=== PATIENT | male | born 1945 | race Caucasian/White ===

== ENCOUNTER 2016-09-02 11:37 | Inpatient (IN) | payer OTHER, MEDICARE ==
[2016-08-20 14:56] LABS: BASOPHILS 1.1 %; BASOPHILS ABSOLUTE 0.05 10/3/uL (0.0-0.16); EOSINOPHILS 2.2 %; HEMATOCRIT 50.3 % (40.0-51.0); HEMOGLOBIN 17.3 g/dL (13.6-17.8); LYMPHOCYTES 28.6 %; MANUAL DIFF NO %; MEAN CORPUS HGB CONC 34.4 g/dL (32.0-36.0); MEAN CORPUSCULAR HEMOGLOB 31.1 pg (26.0-34.0); MEAN CORPUSCULAR VOLUME 90.3 fL (80-100); MEAN PLATELET VOLUME 9.5 fL (9.2-13.0); MONOCYTES 14.3 %; MONOCYTES ABSOLUTE 0.65 10/3/uL (0.21-1.20); NEUTROPHILS 53.8 %; NEUTROPHILS ABSOLUTE 2.45 10/3/uL (2.02-8.40); PLATELET COUNT 257 10/3/uL (150-400); RED CELL COUNT 5.57 10/6/uL (4.7-6.1); WHITE BLOOD CELLS 4.6 10/3/uL (4.5-10.5)
[2016-08-20 15:01] LABS: PROTIME (NOT ORD) 13.1 SEC (12.0-14.5)
[2016-08-20 15:09] LABS: A/G RATIO 1.2 (0.7-1.9); ALBUMIN 3.8 G/DL (3.5-5.0); ALKALINE PHOSPHATASE 80 U/L (45-117); CHLORIDE, SERUM 107 MMOL/L (96-112); CO2 (CARBON DIOXIDE) 27 MMOL/L (24-34); CREATININE 0.87 MG/DL (0.70-1.30); GFR AFRICAN AMERICAN 102 ML/MIN (>=60); GFR NON AFRICAN AMERICAN 88 ML/MIN (>=60); GLOBULIN 3.1 G/DL (2.5-4.1); GLUCOSE, SERUM 95 MG/DL (60-99); POTASSIUM, SERUM 4.4 MMOL/L (3.5-5.3); SGOT(AST) 23 U/L (5-40); SGPT(ALT) 45 U/L (5-65); SODIUM, SERUM 143 MMOL/L (135-148); TOTAL BILIRUBIN 0.6 MG/DL (0-1.2); TOTAL PROTEIN 6.9 G/DL (6.0-8.5)
[2016-08-20 15:10] LABS: BUN (BLOOD UREA NITROGEN) 20 MG/DL (6-23)
[2016-08-20 15:56] LABS: ASCORBIC ACID (UR NOT ORDER) NEG (NEG); BILIRUBIN, URINE NEGATIVE (NEG); KETONE, URINE NEGATIVE (NEG); LEUKOCYTE ESTERASE(NOT OR NEG (NEG); WBC (NOT ORDERED) (RFLEX) < 1 (0-5)
--- NOTE | ~2016-09-02 | OP ---
Record Of Operation [facility] [address] [place]. [address] NAME: ALETHEA MCKEON : 47 STATUS : ADM IN PAT#: [id number] AGE: 70 ADM/REG DATE : 09/02/16 MR#: [id number] REPORT SERV DATE: 09/03/16 DICTATED BY: SHANNEN CRUZ DATE: 09/02/16 REPORT STATUS : Draft TRANSCRIBED BY: MODL DATE: 09/02/16 DATE OF PROCEDURE: 09/02/2016 PREOPERATIVE DIAGNOSIS: Left knee arthritis. POSTOPERATIVE DIAGNOSIS: Left knee arthritis. PROCEDURE PERFORMED: Left total knee arthroplasty. SURGEON: Shannen Cruz M.D. ACIDIZER: Kevin Esteban. ANESTHESIA: General with adductor block and local infusion. PROCEDURE IN DETAIL: The patient is clearly identified and after obtaining informed consent is brought to the operating room at [facility] where anesthesia is induced uneventfully with excellent anesthetic effect. Subsequently, the affected extremity is prepped and draped in the usual manner and after an appropriate time-out procedure is performed, via an anterior approach, the skin is divided, fascial planes are elevated, paramedial approach to the knee is made. The structures themselves are elevated, excised, and debrided were appropriate, whereupon the patella is carefully everted, calipered, and planed and with the size and type being reproduced with the appropriate-size patella, trialing is performed successfully. At this point, the patella is then carefully subluxed laterally, the knee is flexed, osteophytes around the distal femur are removed, followed by the ACL being divided. The femoral canal is entered and vented, at which point with the intramedullary guide being utilized, the distal femoral cut is made. At this point, the tibia is carefully subluxed anteriorly. The surrounding soft tissues to the tibia are protected with Hohmann retractors, at which point the extramedullary guide is utilized to perform the proximal tibial cut and after cleansing these tissues, the spacer block is utilized in extension to confirm excellent extension, stability, and alignment. The guiding pins are then all carefully removed and the knee is then flexed. The femur is sized, whereupon the anterior, posterior, chamfer, and box cuts are made appropriately. The proximal tibia then is assessed. Osteophytes and surrounding soft tissues are removed and debrided were appropriate. Posterior osteophytes are removed as well. The menisci are excised and thus concluding trialings performed successfully. The proximal tibia then is carefully prepared utilizing proper cement technique. The permanent implants have been carefully placed into position uneventfully where upon copious irrigations performed, the permanent tibial implants applied and thus concluded. The joint was then copiously irrigated, at which point it is closed carefully in layers including Vicryl and soniya for the skin, at which point Aquacel sterile dressing is applied. The patient is allowed to awaken and is transferred to the bed and subsequently to the recovery room in stable condition having tolerated the procedure well. ESTIMATED BLOOD LOSS: 75 mL. Record Of Operation [facility] [address] [place]. [address] NAME: ALETHEA MCKEON : 47 STATUS : ADM IN [facility]#: [id number] AGE: 70 ADM/REG DATE : 09/02/16 MR#: [id number] REPORT SERV DATE: 09/03/16 DICTATED BY: SHANNEN CRUZ DATE: 09/02/16 REPORT STATUS : Draft TRANSCRIBED BY: KRISTOPHER DATE: 09/02/16 FLUIDS: 1000 mL. TOURNIQUET TIME: 40 minutes. PATHOLOGY: Sent specimen. MICROBIOLOGY: None. COMPLICATIONS: None. SPONGE AND NEEDLE COUNTS: Reportedly correct. ANTIBIOTICS: Administered appropriately preoperatively and ordered to be discontinued within 23 hours. IMPLANTS: Attune knee by DePuy, femur 8, tibia 8, patella 41, polyethylene 01/11. BANDAR/KRISTOPHER Shannen Cruz M.D. / [id number] CC: Shannen Cruz M.D.
[~2016-09-02 11:37] MED LIST: ASAB PO; FLOMAX4 PO; LORTAB 5 PO; PYR200 PO; T PO; VITAMIN D1000 UNI1 PO
[2016-09-03 04:00] LABS: HEMOGLOBIN 14.1 g/dL (13.6-17.8)
[2016-09-03 04:06] LABS: INTERNATIONAL NORMAL RATI 1.1 UNITS (-); PROTIME (NOT ORD) 14.1 SEC (12.0-14.5)
[2016-09-03 04:42] LABS: CHLORIDE, SERUM 103 MMOL/L (96-112); CO2 (CARBON DIOXIDE) 30 MMOL/L (24-34); CREATININE 0.98 MG/DL (0.70-1.30); GFR AFRICAN AMERICAN 91 ML/MIN (>=60); GFR NON AFRICAN AMERICAN 78 ML/MIN (>=60); SODIUM, SERUM 138 MMOL/L (135-148)
[2016-09-03 04:54] LABS: BUN (BLOOD UREA NITROGEN) 24 MG/DL (6-23); CALCIUM, SERUM 7.8 MG/DL (8.5-10.4); GLUCOSE, SERUM 131 MG/DL (60-99)
[2016-09-03] MEDS ORDERED: ZOFRAN4 PO (16:29)
[2016-09-03] MEDS ORDERED: OXYCOD PO (16:33)
[2016-09-03] MEDS ORDERED: C5 PO (16:35)
[2017-03-03] MEDS ORDERED: NORCO1 TAB PO (07:22)
[2017-03-03] MEDS ORDERED: ACET500CAP PO (07:22)
== END 2016-09-03 17:40 | disposition home or self-care (01) | DRG 470 ==
LOC: SDC/OF 11:37 → PACU 18:01 → 3SO 19:34
PROVIDERS: Orthopaedic Surgery
PROC: 0SRD0J9 Replacement of Left Knee Joint with Synthetic Substitute, Cemented, Open Approach (ICD-10-PCS; principal; 2016-09-02 12:15)
DX: M17.12 Unilateral primary osteoarthritis, left knee (principal)
CPT/HCPCS: 36415; 71020; 80048; 80053; 81001; 85014; 85018; 85025; 85610; 85730; 86850; 86900; 86901; 87641; 88305; 88311; 93005; 97110-GP; 97116-GP; 97161-GP; 97165-GO; A9270-GY; C1776; J0690; J1885; J2250; J2270; J2274; J2405; J2550; J2710; J2795; J3010

== ENCOUNTER 2016-11-16 06:42 | Day surgery (SDC) | payer OTHER ==
[2016-11-10 14:51] LABS: HEMOGLOBIN 15.8 g/dL (13.6-17.8)
[2016-11-10 14:52] LABS: HEMATOCRIT 48.5 % (40.0-51.0)
--- NOTE | ~2016-11-16 | OP ---
Record Of Operation [facility] [address] [place] [address] NAME: ALETHEA MCKEON : 47 STATUS : REG [facility]#: [id number] AGE: 70 ADM/REG DATE : 11/16/16 MR#: [id number] REPORT SERV DATE: 11/16/16 DICTATED BY: RICARDO ORELLANA III DATE: 11/16/16 REPORT STATUS : Draft TRANSCRIBED BY: MODL DATE: 11/16/16 DATE OF PROCEDURE: 11/16/2016 PREOPERATIVE DIAGNOSIS: History of urothelial carcinoma. POSTOPERATIVE DIAGNOSIS: No evidence of recurrence. PROCEDURE: Cystoscopy. ANESTHESIA: General. SPECIMENS: None. DRAINS: None. BLOOD LOSS: None. INDICATION: Mr. Mckeon is a 70-year-old white male with a history of urothelial carcinoma. Consent is obtained for a surveillance cystoscopy. DESCRIPTION OF PROCEDURE: After consent was obtained, the patient was identified and was taken to the OR and put to sleep. He was positioned in the low lithotomy position and prepped and draped in usual fashion. The 22-Tamazight cystoscope was made ready and inserted into the urethra and then advanced into the bladder under direct vision. The anterior urethra and prostatic urethra were both normal. The bladder was inspected. There were no tumors, stones, or foreign bodies noted. The bladder was then drained. The scope was removed. The patient was awakened and taken to recovery in stable condition. PH/MODMateo Ricardo Orellana III, M.D. / [id number] CC: Alix Diaz III, M.D.
[~2016-11-16 06:42] MED LIST changes: +C5 PO; +OXYCOD PO; +ZOFRAN4 PO
[2017-03-03] MEDS ORDERED: NORCO1 TAB PO (07:22)
[2017-03-03] MEDS ORDERED: ACET500CAP PO (07:22)
== END 2016-11-16 11:45 | disposition home or self-care (01) ==
LOC: SDC 06:42
PROVIDERS: Urology
PROC: 0TJB8ZZ Inspection of Bladder, Via Natural or Artificial Opening Endoscopic (ICD-10-PCS; principal; 2016-11-16 08:30)
DX: Z08 Encounter for follow-up examination after completed treatment for malignant neoplasm (principal); Z88.5 Allergy status to narcotic agent; Z90.49 Acquired absence of other specified parts of digestive tract; Z98.890 Other specified postprocedural states; Z85.51 Personal history of malignant neoplasm of bladder
CPT/HCPCS: 36415; 85014; 85018; 93005; J2250; J2405; J3010

== ENCOUNTER 2017-02-16 20:46 | Emergency (ER) | payer OTHER ==
[2017-02-16 21:50] LABS: BASOPHILS 0.2 %; BASOPHILS ABSOLUTE 0.01 10/3/uL (0.0-0.16); EOSINOPHILS 1.1 %; EOSINOPHILS ABSOLUTE 0.07 10/3/uL (0.0-0.53); ER CBC TAT 0 Hrs 03 Mins; LYMPHOCYTES 11.7 %; LYMPHOCYTES ABSOLUTE 0.72 10/3/uL (0.67-4.30); MEAN CORPUSCULAR VOLUME 91.5 fL (80-100); MEAN PLATELET VOLUME 10.3 fL (9.2-13.0); MONOCYTES ABSOLUTE 0.55 10/3/uL (0.21-1.20); NEUTROPHILS ABSOLUTE 4.78 10/3/uL (2.02-8.40); PLATELET COUNT 257 10/3/uL (150-400); WHITE BLOOD CELLS 6.1 10/3/uL (4.5-10.5)
[2017-02-16 21:51] LABS: HEMATOCRIT 32.2 % (40.0-51.0); HEMOGLOBIN 9.8 g/dL (13.6-17.8); MANUAL DIFF NO %; MEAN CORPUS HGB CONC 30.4 g/dL (32.0-36.0); MEAN CORPUSCULAR HEMOGLOB 27.8 pg (26.0-34.0); RBC DISTRIBUTION WIDTH 17.2 % (12.0-16.0); RED CELL COUNT 3.52 10/6/uL (4.7-6.1)
[2017-02-16 22:07] LABS: CALCIUM, SERUM 8.4 MG/DL (8.5-10.4); CO2 (CARBON DIOXIDE) 37 MMOL/L (24-34); CREATININE 0.53 MG/DL (0.70-1.30); GFR AFRICAN AMERICAN 124 ML/MIN (>=60); GFR NON AFRICAN AMERICAN 107 ML/MIN (>=60); SGOT(AST) 13 U/L (5-40); TOTAL BILIRUBIN 0.6 MG/DL (0-1.2); TOTAL PROTEIN 6.7 G/DL (6.0-8.5)
[2017-02-16 22:09] LABS: A/G RATIO 0.3 (0.7-1.9); ALBUMIN 1.7 G/DL (3.5-5.0); ALKALINE PHOSPHATASE 60 U/L (45-117); BUN (BLOOD UREA NITROGEN) 7 MG/DL (6-23); CHLORIDE, SERUM 93 MMOL/L (96-112); GLUCOSE, SERUM 116 MG/DL (60-99); POTASSIUM, SERUM 3.1 MMOL/L (3.5-5.3); SGPT(ALT) < 6 U/L (5-65); SODIUM, SERUM 134 MMOL/L (135-148)
[2017-02-16 23:32] LABS: ASCORBIC ACID (UR NOT ORDER) NEG (NEG); BILIRUBIN, URINE NEGATIVE (NEG); ER URINALYSIS TAT 0 Hrs 00 Mins; KETONE, URINE TRACE MG/DL (NEG); LEUKOCYTE ESTERASE(NOT OR NEG (NEG); NITRITE (URINE) NEG (NEG); WBC (NOT ORDERED) (RFLEX) 5 (0-5)
== END 2017-02-17 01:10 | disposition home or self-care (01) ==
LOC: ER 20:46
PROVIDERS: Student in an Organized Health Care Education/Training Program
DX: K40.90 Unilateral inguinal hernia, without obstruction or gangrene, not specified as recurrent (principal); Z88.5 Allergy status to narcotic agent
CPT/HCPCS: 74176; 80053; 81001; 83690; 85025; 96374; 96375; 96376; 99284; J1170